=== PATIENT | female | born 1930 | race Two or more races ===

== ENCOUNTER 2017-08-02 19:33 | Inpatient (IN) | payer MEDICARE, OTHER ==
[~2017-08-02] VITALS: Ht 167.6 cm; Wt 80.0 kg
[2017-08-02] MEDS ORDERED: ACETAMINOPHEN 325 MG TAB PO ONE (19:45)
[2017-08-02] MEDS ORDERED: ACETAMINOPHEN 325 MG TAB PO PRN (19:45)
[2017-08-02] MEDS ORDERED: SODIUM CHLORIDE 0.9% 2,400 ML IV ONE (19:45)
[2017-08-02 20:45] LABS: Basophils # (auto) 0 uL; Basophils % (auto) 0.1 % (0.0-2.0); Hemoglobin 9.5 g/dL (12.2-16.2); Neutrophils # (auto) 8.9 uL
[2017-08-02 20:54] LABS: Eosinophils # (auto) 0.1 uL; Eosinophils % (auto) 0.7 % (0.0-7.0); Hematocrit 28.8 % (36.0-46.0); Lymphocytes # (auto) 0.3 uL; Lymphocytes % (auto) 2.5 % (10.0-50.0); Mean Corpuscular Hemoglobin 29.8 pg (28.0-32.0); Mean Corpuscular Hgb Conc. 33.1 g/dL (32.0-36.0); Monocytes % (auto) 10.1 % (0.0-12.0); Neutrophils % (auto) 86.6 % (37.0-80.0); Platelet Count (auto) 163 10^3/uL (140-450); White Blood Cell 10.3 10^3/uL (4.4-10.8)
[2017-08-02 21:09] LABS: INR 1.1 (0.9-1.15); Partial Thromboplastin Time 29.4 sec (22.64-33.71)
[2017-08-02 21:16] LABS: Alanine Aminotransferase 33 U/L (13-56); Albumin 2.7 g/dL (3.4-5.0); Alkaline Phosphatase 107 U/L (45-117); Anion Gap 8 (5-15); Aspartate Aminotransferase 38 U/L (15-37); BUN/Creatinine Ratio 34.1; Bilirubin, Total 0.6 mg/dL (0.2-1.0); Blood Urea Nitrogen 60 mg/dL (7-18); Calcium 9.2 mg/dL (8.5-10.1); Carbon Dioxide 23 mmol/L (21-32); Chloride 109 mmol/L (98-107); GFR African American 35 mL/min; GFR Non-African American 29 mL/min; Glucose 193 mg/dL (74-106); Potassium 4.4 mmol/L (3.5-5.1); Sodium 140 mmol/L (136-145); Total Protein 6.7 g/dL (6.4-8.2)
[2017-08-02 21:33] LABS: Urine Bacteria MANY /hpf (None Seen); Urine Blood 2+ /uL (Negative); Urine Mucus FEW (None Seen); Urine WBC 505 /hpf (0 - 5); Urine WBC Clumps PRESENT /hpf (None Seen)
[2017-08-02 21:36] LABS: CRP High Sensitivity > 19.0 mg/dL (< 0.3)
[2017-08-02] MEDS ORDERED: PIPERACILLIN-TAZO 4.5GM 100 ML IV SCH (22:00)
[2017-08-02] MEDS ORDERED: CEFTRIAXONE SODIUM 2 GM in D5W 5% 50 ML IV ONE (22:00)
[2017-08-02 22:57] LABS: Fibrinogen 722.3 mg/dL (177-375)
[2017-08-02] MEDS ORDERED: ONDANSETRON HCL 4 MG/2 ML VIAL IV PRN (23:00)
[2017-08-02] MEDS ORDERED: MORPHINE SULFATE 4 MG/ML SYR/VIAL IV PRN (23:00)
[2017-08-02] MEDS ORDERED: VANCOMYCIN PER PHARMACY 0 MG IV SCH (23:00)
[2017-08-02] MEDS ORDERED: VANCOMYCIN 1GM/250ML 250 ML IV ONE (23:15)
[2017-08-03] MEDS: PIPERACILLIN-TAZOB 2.25GM 50 ML IV SCH ×4 (02:30→18:58)
[2017-08-03] MEDS: DOPamine 1600MCG/ML D5W 250 ML IV SCH (02:47)
[2017-08-03 04:04] LABS: BUN/Creatinine Ratio 35.3; Calcium 8.6 mg/dL (8.5-10.1); Potassium 4.5 mmol/L (3.5-5.1)
[2017-08-03 04:11] LABS: Basophils # (auto) 0 uL; Basophils % (auto) 0.1 % (0.0-2.0); Eosinophils # (auto) 0 uL; Eosinophils % (auto) 0.3 % (0.0-7.0); Hematocrit 28.9 % (36.0-46.0); Hemoglobin 9.4 g/dL (12.2-16.2); Lymphocytes # (auto) 0.5 uL; Lymphocytes % (auto) 6.1 % (10.0-50.0); Mean Corpuscular Hemoglobin 29.6 pg (28.0-32.0); Mean Corpuscular Hgb Conc. 32.5 g/dL (32.0-36.0); Mean Corpuscular Volume 91.2 fL (80.0-100.0); Monocytes # (auto) 0.7 uL; Monocytes % (auto) 8.7 % (0.0-12.0); Neutrophils # (auto) 6.8 uL; Neutrophils % (auto) 84.8 % (37.0-80.0); Platelet Count (auto) 134 10^3/uL (140-450); Red Blood Cells 3.17 10^6/uL (4.0-5.20); Red Cell Distribution Width 16.3 % (11.8-14.3)
[2017-08-03 08:32] VITALS: BP 119/50
[2017-08-03] MEDS: ACETAMINOPHEN 325 MG TAB PO PRN ×2 (11:17→17:33)
[2017-08-03] MEDS: IPRATROPIUM BROM 0.5 MG/2.5ML INH SOL NEB SCH ×2 (12:19→18:07)
[2017-08-03] MEDS: ALBUTEROL SULF 2.5 MG/0.5ML(0.5%) NEB SOLN NEB SCH ×2 (12:19→18:07)
[2017-08-03] MEDS: SODIUM CHLORIDE 0.9% 1,000 ML IV SCH (15:06)
[2017-08-03] MEDS ORDERED: DEXTROSE (50%) 50ML SYRG IV PRN (15:15)
[2017-08-03 15:31] LABS: % Iron Saturation 2.3 % (15-50)
[2017-08-03] MEDS: InsuLIN REG 1unit/0.01ml Soln (100units/ml) SC SCH ×2 (17:00→21:38)
[2017-08-03] MEDS: ACCU-CHEK COMFORT CURVE STRIP VI SCH ×2 (17:10→21:33)
[2017-08-03] MEDS ORDERED: VANCOMYCIN 1GM/250ML 250 ML IV SCH (23:00)
[2017-08-04] MEDS: ALBUTEROL SULF 2.5 MG/0.5ML(0.5%) NEB SOLN NEB SCH ×4 (01:17→18:00)
[2017-08-04] MEDS: IPRATROPIUM BROM 0.5 MG/2.5ML INH SOL NEB SCH ×4 (01:17→18:00)
[2017-08-04] MEDS: DOPamine 1600MCG/ML D5W 250 ML IV SCH (05:33)
[2017-08-04] MEDS: PIPERACILLIN-TAZOB 2.25GM 50 ML IV SCH ×4 (05:33→17:51)
[2017-08-04] MEDS: SODIUM CHLORIDE 0.9% 1,000 ML IV SCH ×3 (05:34→16:53)
[2017-08-04 05:39] LABS: Basophils # (auto) 0 uL; Basophils % (auto) 0.6 % (0.0-2.0); Eosinophils # (auto) 0.2 uL; Eosinophils % (auto) 2.6 % (0.0-7.0); Hematocrit 30.5 % (36.0-46.0); Lymphocytes % (auto) 10.9 % (10.0-50.0); Mean Corpuscular Hemoglobin 30.3 pg (28.0-32.0); Mean Corpuscular Hgb Conc. 32.9 g/dL (32.0-36.0); Mean Corpuscular Volume 92.1 fL (80.0-100.0); Monocytes # (auto) 1.2 uL; Monocytes % (auto) 13.4 % (0.0-12.0); Neutrophils # (auto) 6.5 uL; Neutrophils % (auto) 72.5 % (37.0-80.0); Platelet Count (auto) 151 10^3/uL (140-450); Red Blood Cells 3.31 10^6/uL (4.0-5.20); Red Cell Distribution Width 16.5 % (11.8-14.3)
[2017-08-04 06:42] LABS: Albumin 2.3 g/dL (3.4-5.0); BUN/Creatinine Ratio 33.7; Bilirubin, Total 0.4 mg/dL (0.2-1.0); Calcium 8.7 mg/dL (8.5-10.1); Magnesium 2.6 mg/dL (1.6-2.6); Total Protein 6.7 g/dL (6.4-8.2)
[2017-08-04] MEDS: InsuLIN REG 1unit/0.01ml Soln (100units/ml) SC SCH ×4 (07:00→22:00)
[2017-08-04] MEDS: ACCU-CHEK COMFORT CURVE STRIP VI SCH ×4 (07:04→22:27)
[2017-08-04] MEDS: LEVOTHYROXINE SODIUM 50 MCG TAB PO SCH (07:04)
[2017-08-05] MEDS: IPRATROPIUM BROM 0.5 MG/2.5ML INH SOL NEB SCH ×4 (00:01→19:53)
[2017-08-05] MEDS: ALBUTEROL SULF 2.5 MG/0.5ML(0.5%) NEB SOLN NEB SCH ×4 (00:01→19:53)
[2017-08-05] MEDS: PIPERACILLIN-TAZOB 2.25GM 50 ML IV SCH ×2 (00:35→06:10)
[2017-08-05] MEDS: SODIUM CHLORIDE 0.9% 1,000 ML IV SCH ×3 (00:35→12:07)
[2017-08-05 05:57] LABS: Basophils # (auto) 0 uL; Basophils % (auto) 0.4 % (0.0-2.0); Eosinophils # (auto) 0.1 uL; Hematocrit 26.2 % (36.0-46.0); Hemoglobin 8.7 g/dL (12.2-16.2); Lymphocytes # (auto) 0.5 uL; Lymphocytes % (auto) 8.4 % (10.0-50.0); Mean Corpuscular Hemoglobin 30.1 pg (28.0-32.0); Mean Corpuscular Hgb Conc. 33.3 g/dL (32.0-36.0); Mean Corpuscular Volume 90.3 fL (80.0-100.0); Monocytes # (auto) 0.8 uL; Monocytes % (auto) 12.7 % (0.0-12.0); Neutrophils # (auto) 4.7 uL; Neutrophils % (auto) 76.5 % (37.0-80.0); Platelet Count (auto) 138 10^3/uL (140-450); Red Cell Distribution Width 16.2 % (11.8-14.3); White Blood Cell 6.1 10^3/uL (4.4-10.8)
[2017-08-05 06:13] LABS: BUN/Creatinine Ratio 22.9; Calcium 8.4 mg/dL (8.5-10.1); Potassium 4.4 mmol/L (3.5-5.1)
[2017-08-05] MEDS: InsuLIN REG 1unit/0.01ml Soln (100units/ml) SC SCH ×4 (07:00→22:00)
[2017-08-05] MEDS: LEVOTHYROXINE SODIUM 50 MCG TAB PO SCH (07:00)
[2017-08-05] MEDS: ACCU-CHEK COMFORT CURVE STRIP VI SCH ×3 (07:28→17:51)
[2017-08-05] MEDS ORDERED: cefTRIAXone 1GM/10ml IVPUSH 10 ML IV ONE (11:15)
[2017-08-05] MEDS ORDERED: MORPHINE SULFATE 4 MG/ML SYR/VIAL IV PRN (11:15)
[2017-08-05 12:20] VITALS: BP 136/46
[2017-08-05 16:17] VITALS: BP 140/57
[2017-08-05] MEDS ORDERED: MORPHINE SULFATE 8mg/ml INJ SDV IV PRN (18:00)
[2017-08-06] MEDS: IPRATROPIUM BROM 0.5 MG/2.5ML INH SOL NEB SCH ×3 (01:24→12:15)
[2017-08-06] MEDS: ALBUTEROL SULF 2.5 MG/0.5ML(0.5%) NEB SOLN NEB SCH ×3 (01:24→12:15)
[2017-08-06] MEDS: SODIUM CHLORIDE 0.9% 1,000 ML IV SCH ×2 (01:40→08:57)
[2017-08-06] MEDS: ACCU-CHEK COMFORT CURVE STRIP VI SCH ×5 (01:41→22:52)
[2017-08-06 05:06] VITALS: BP 140/59
[2017-08-06] MEDS: LEVOTHYROXINE SODIUM 50 MCG TAB PO SCH (06:54)
[2017-08-06] MEDS: InsuLIN REG 1unit/0.01ml Soln (100units/ml) SC SCH ×2 (07:00→11:28)
[2017-08-06 07:04] LABS: Hemoglobin 8.6 g/dL (12.2-16.2); Mean Corpuscular Hemoglobin 29.9 pg (28.0-32.0); Mean Corpuscular Hgb Conc. 32.9 g/dL (32.0-36.0); Mean Corpuscular Volume 90.9 fL (80.0-100.0); Platelet Count (auto) 177 10^3/uL (140-450); Red Blood Cells 2.86 10^6/uL (4.0-5.20); Red Cell Distribution Width 16.2 % (11.8-14.3)
[2017-08-06 07:08] LABS: Band Neutrophils % (manual) 0; Basophils % (manual) 0 (0.0-2.0); Blast Cells 0; Metamyelocytes % 0; Myelocytes % 0; Promyelocytes % 0; Reactive Lymphocytes 0
[2017-08-06 07:14] LABS: BUN/Creatinine Ratio 19.7; Calcium 8.2 mg/dL (8.5-10.1); Potassium 3.7 mmol/L (3.5-5.1)
[2017-08-06 08:16] VITALS: BP 140/59
[2017-08-06] MEDS: cefTRIAXone 1GM/10ml IVPUSH 10 ML IV SCH (08:57)
[2017-08-06 09:00] VITALS: BP 146/66
[2017-08-06] MEDS: ACETAMINOPHEN 325 MG TAB PO PRN (11:35)
[2017-08-06 13:00] VITALS: BP 147/60
[2017-08-06 15:29] LABS: Eosinophils % (manual) 2 (0-7); Lymphocytes % (manual) 12 (10.0-50.0); Monocytes % (manual) 12 (0-12)
[2017-08-06 16:43] VITALS: BP 144/52
[2017-08-06] MEDS ORDERED: ENOXAPARIN SOD 40 MG/0.4 ML SYRINGE SC ONE (17:15)
[2017-08-06] MEDS ORDERED: FUROSEMIDE 20 MG/2 ML VIAL IV ONE (17:15)
[2017-08-06] MEDS ORDERED: ALBUTEROL SULF 2.5 MG/0.5ML(0.5%) NEB SOLN NEB PRN (21:45)
[2017-08-06] MEDS ORDERED: IPRATROPIUM BROM 0.5 MG/2.5ML INH SOL NEB PRN (21:45)
[2017-08-06 22:00] VITALS: BP 161/79
[2017-08-07 05:00] VITALS: BP 141/64
[2017-08-07] MEDS: LEVOTHYROXINE SODIUM 50 MCG TAB PO SCH (07:19)
[2017-08-07] MEDS: ACCU-CHEK COMFORT CURVE STRIP VI SCH ×4 (07:19→21:34)
[2017-08-07 08:00] VITALS: BP 151/67
[2017-08-07 09:00] VITALS: BP 151/67
[2017-08-07] MEDS: cefTRIAXone 1GM/10ml IVPUSH 10 ML IV SCH (09:59)
[2017-08-07] MEDS: ENOXAPARIN SOD 40 MG/0.4 ML SYRINGE SC SCH (09:59)
[2017-08-07 13:00] VITALS: BP 141/62
[2017-08-07 16:50] VITALS: BP 134/68
[2017-08-07] MEDS ORDERED: IOHEXOL 350 MG/ML 100ML IJ ONE (17:49)
[2017-08-07] MEDS ORDERED: FUROSEMIDE 40 MG/4 ML VIAL IV STA (20:10)
[2017-08-07 20:14] LABS: Basophils # (auto) 0 uL; Basophils % (auto) 0.2 % (0.0-2.0); Eosinophils # (auto) 0 uL; Eosinophils % (auto) 0.3 % (0.0-7.0); Hematocrit 26.6 % (36.0-46.0); Hemoglobin 8.6 g/dL (12.2-16.2); Lymphocytes % (auto) 7.6 % (10.0-50.0); Mean Corpuscular Hemoglobin 29.1 pg (28.0-32.0); Mean Corpuscular Hgb Conc. 32.4 g/dL (32.0-36.0); Mean Corpuscular Volume 89.9 fL (80.0-100.0); Monocytes # (auto) 0.9 uL; Monocytes % (auto) 6.8 % (0.0-12.0); Neutrophils # (auto) 10.8 uL; Neutrophils % (auto) 85.1 % (37.0-80.0); Nucleated Red Blood Cells % 0.1 %; Platelet Count (auto) 210 10^3/uL (140-450); Red Blood Cells 2.96 10^6/uL (4.0-5.20); Red Cell Distribution Width 15.7 % (11.8-14.3); White Blood Cell 12.7 10^3/uL (4.4-10.8)
[2017-08-07 20:34] LABS: BUN/Creatinine Ratio 20.3; Calcium 8.3 mg/dL (8.5-10.1); Potassium 3.5 mmol/L (3.5-5.1)
[2017-08-07 20:37] LABS: Bilirubin, Total 0.5 mg/dL (0.2-1.0); Total Protein 6.1 g/dL (6.4-8.2)
[2017-08-07] MEDS ORDERED: POTASSIUM CHL 20 Meq TABLET PO ONE (22:15)
[2017-08-07] MEDS ORDERED: PANTOPRAZOLE 40 MG TAB PO ONE (22:15)
[2017-08-07 23:33] VITALS: BP 141/68
[2017-08-08 05:34] VITALS: BP 145/64
[2017-08-08 06:38] LABS: Basophils # (auto) 0 uL; Basophils % (auto) 0.3 % (0.0-2.0); Eosinophils # (auto) 0.2 uL; Hematocrit 25.3 % (36.0-46.0); Hemoglobin 8.6 g/dL (12.2-16.2); Lymphocytes # (auto) 1.1 uL; Lymphocytes % (auto) 10.8 % (10.0-50.0); Mean Corpuscular Hemoglobin 30.3 pg (28.0-32.0); Mean Corpuscular Hgb Conc. 33.9 g/dL (32.0-36.0); Mean Corpuscular Volume 89.3 fL (80.0-100.0); Monocytes # (auto) 0.9 uL; Monocytes % (auto) 8.5 % (0.0-12.0); Neutrophils # (auto) 8.3 uL; Neutrophils % (auto) 78.4 % (37.0-80.0); Platelet Count (auto) 234 10^3/uL (140-450); Red Blood Cells 2.84 10^6/uL (4.0-5.20); Red Cell Distribution Width 15.5 % (11.8-14.3); White Blood Cell 10.6 10^3/uL (4.4-10.8)
[2017-08-08] MEDS: ACCU-CHEK COMFORT CURVE STRIP VI SCH ×4 (06:38→21:39)
[2017-08-08] MEDS: LEVOTHYROXINE SODIUM 50 MCG TAB PO SCH (06:38)
[2017-08-08 06:48] LABS: Calcium 8.6 mg/dL (8.5-10.1); Potassium 3.7 mmol/L (3.5-5.1)
[2017-08-08 06:57] LABS: BUN/Creatinine Ratio 23.5
[2017-08-08 08:00] VITALS: BP 140/59
[2017-08-08] MEDS: cefTRIAXone 1GM/10ml IVPUSH 10 ML IV SCH (08:37)
[2017-08-08] MEDS: FERROUS SULFATE 325 MG TAB PO SCH ×2 (08:37→17:21)
[2017-08-08 09:00] VITALS: BP_SYST 140; BP_SYST 152; BP_DIAS 59; BP_DIAS 88
[2017-08-08] MEDS: ACETAMINOPHEN 325 MG TAB PO PRN ×2 (09:22→17:21)
[2017-08-08] MEDS: ENOXAPARIN SOD 40 MG/0.4 ML SYRINGE SC SCH (09:23)
[2017-08-08] MEDS: PANTOPRAZOLE 40 MG TAB PO SCH (09:23)
[2017-08-08 13:00] VITALS: BP 146/67
[2017-08-08 17:00] VITALS: BP 157/69
[2017-08-08 22:00] VITALS: BP 133/56
[2017-08-09 03:04] VITALS: BP 133/56
[2017-08-09 06:04] LABS: Basophils # (auto) 0 uL; Basophils % (auto) 0.3 % (0.0-2.0); Eosinophils # (auto) 0.1 uL; Eosinophils % (auto) 0.5 % (0.0-7.0); Hematocrit 28.9 % (36.0-46.0); Hemoglobin 9.2 g/dL (12.2-16.2); Lymphocytes # (auto) 0.7 uL; Lymphocytes % (auto) 5.5 % (10.0-50.0); Mean Corpuscular Hemoglobin 29.5 pg (28.0-32.0); Mean Corpuscular Hgb Conc. 31.6 g/dL (32.0-36.0); Mean Corpuscular Volume 93.2 fL (80.0-100.0); Monocytes # (auto) 0.8 uL; Neutrophils # (auto) 11.9 uL; Neutrophils % (auto) 87.7 % (37.0-80.0); Platelet Count (auto) 207 10^3/uL (140-450); Red Cell Distribution Width 16.6 % (11.8-14.3); White Blood Cell 13.6 10^3/uL (4.4-10.8)
[2017-08-09 06:09] LABS: Calcium 8.6 mg/dL (8.5-10.1); Magnesium 2.1 mg/dL (1.6-2.6)
[2017-08-09 06:12] LABS: BUN/Creatinine Ratio 26.5
[2017-08-09 06:17] VITALS: BP 152/56
[2017-08-09] MEDS: LEVOTHYROXINE SODIUM 50 MCG TAB PO SCH (06:28)
[2017-08-09] MEDS: ACCU-CHEK COMFORT CURVE STRIP VI SCH ×4 (06:31→22:00)
[2017-08-09] MEDS: FERROUS SULFATE 325 MG TAB PO SCH ×2 (07:30→17:32)
[2017-08-09 08:00] VITALS: BP 147/59
[2017-08-09] MEDS ORDERED: LISI-646 PO (08:30)
[2017-08-09] MEDS ORDERED: AMLO5TAB2 PO (08:30)
[2017-08-09] MEDS ORDERED: METO25TA5 PO (08:30)
[2017-08-09] MEDS ORDERED: LEVO50TA7 PO (08:30)
[2017-08-09] MEDS: cefTRIAXone 1GM/10ml IVPUSH 10 ML IV SCH (09:09)
[2017-08-09] MEDS: PANTOPRAZOLE 40 MG TAB PO SCH (09:10)
[2017-08-09] MEDS: ENOXAPARIN SOD 40 MG/0.4 ML SYRINGE SC SCH (09:10)
[2017-08-09] MEDS: ACETAMINOPHEN 325 MG TAB PO PRN (09:10)
[2017-08-09 11:09] LABS: Urine Amorphous Crystal FEW /hpf (None Seen); Urine Bacteria MANY /hpf (None Seen); Urine Blood 2+ /uL (Negative); Urine Mucus FEW (None Seen); Urine Specific Gravity 1.021 (1.001-1.035); Urine WBC 179 /hpf (0 - 5)
[2017-08-09 12:34] VITALS: BP 133/55
[2017-08-09 16:27] VITALS: BP 132/62
[2017-08-09 22:00] VITALS: BP 156/71
[2017-08-10 05:30] VITALS: BP 145/62
[2017-08-10] MEDS: LEVOTHYROXINE SODIUM 50 MCG TAB PO SCH (06:35)
[2017-08-10] MEDS: ACCU-CHEK COMFORT CURVE STRIP VI SCH ×4 (06:35→22:24)
[2017-08-10 06:37] LABS: Basophils # (auto) 0 uL; Hematocrit 24.9 % (36.0-46.0); Hemoglobin 8.3 g/dL (12.2-16.2); Lymphocytes # (auto) 0.8 uL; Neutrophils # (auto) 7.1 uL
[2017-08-10 06:41] LABS: Basophils % (auto) 0.3 % (0.0-2.0); Eosinophils # (auto) 0.1 uL; Eosinophils % (auto) 1.6 % (0.0-7.0); Lymphocytes % (auto) 9.2 % (10.0-50.0); Mean Corpuscular Hemoglobin 29.6 pg (28.0-32.0); Mean Corpuscular Hgb Conc. 33.2 g/dL (32.0-36.0); Mean Corpuscular Volume 89.1 fL (80.0-100.0); Monocytes # (auto) 0.8 uL; Monocytes % (auto) 9.3 % (0.0-12.0); Neutrophils % (auto) 79.6 % (37.0-80.0); Platelet Count (auto) 261 10^3/uL (140-450); Red Blood Cells 2.79 10^6/uL (4.0-5.20); Red Cell Distribution Width 15.4 % (11.8-14.3); White Blood Cell 8.9 10^3/uL (4.4-10.8)
[2017-08-10 09:00] VITALS: BP 142/59
[2017-08-10] MEDS: cefTRIAXone 1GM/10ml IVPUSH 10 ML IV SCH (09:21)
[2017-08-10] MEDS: ENOXAPARIN SOD 40 MG/0.4 ML SYRINGE SC SCH (09:22)
[2017-08-10] MEDS: ACETAMINOPHEN 325 MG TAB PO PRN (09:22)
[2017-08-10] MEDS: FERROUS SULFATE 325 MG TAB PO SCH ×2 (09:22→18:02)
[2017-08-10] MEDS: PANTOPRAZOLE 40 MG TAB PO SCH (09:22)
[2017-08-10] MEDS ORDERED: FUROSEMIDE 20 MG/2 ML VIAL IV ONE (11:30)
[2017-08-10 13:00] VITALS: BP 142/79
[2017-08-10 16:45] VITALS: BP 145/69
[2017-08-10 20:00] VITALS: BP 142/64
[2017-08-11] MEDS: ACETAMINOPHEN 325 MG TAB PO PRN (03:31)
[2017-08-11 04:55] VITALS: BP 145/58
[2017-08-11 05:48] LABS: Basophils # (auto) 0 uL; Eosinophils # (auto) 0.1 uL; Eosinophils % (auto) 1.6 % (0.0-7.0); Hemoglobin 8.2 g/dL (12.2-16.2); Lymphocytes # (auto) 0.8 uL; Monocytes # (auto) 0.8 uL; Red Cell Distribution Width 15.2 % (11.8-14.3)
[2017-08-11 05:52] LABS: Basophils % (auto) 0.4 % (0.0-2.0); Hematocrit 24.1 % (36.0-46.0); Lymphocytes % (auto) 9.2 % (10.0-50.0); Mean Corpuscular Hgb Conc. 33.9 g/dL (32.0-36.0); Mean Corpuscular Volume 88.4 fL (80.0-100.0); Monocytes % (auto) 9.9 % (0.0-12.0); Neutrophils # (auto) 6.5 uL; Neutrophils % (auto) 78.9 % (37.0-80.0); Nucleated Red Blood Cells % 0.1 %; Platelet Count (auto) 295 10^3/uL (140-450); Red Blood Cells 2.73 10^6/uL (4.0-5.20); White Blood Cell 8.2 10^3/uL (4.4-10.8)
[2017-08-11 06:01] LABS: BUN/Creatinine Ratio 20.9; Calcium 8.6 mg/dL (8.5-10.1); Potassium 3.5 mmol/L (3.5-5.1)
[2017-08-11] MEDS: LEVOTHYROXINE SODIUM 50 MCG TAB PO SCH (06:25)
[2017-08-11] MEDS: ACCU-CHEK COMFORT CURVE STRIP VI SCH ×3 (07:00→18:04)
[2017-08-11] MEDS: FERROUS SULFATE 325 MG TAB PO SCH ×2 (08:48→18:03)
[2017-08-11] MEDS: cefTRIAXone 1GM/10ml IVPUSH 10 ML IV SCH (08:48)
[2017-08-11 09:00] VITALS: BP 137/54
[2017-08-11] MEDS: PANTOPRAZOLE 40 MG TAB PO SCH (09:36)
[2017-08-11] MEDS: ENOXAPARIN SOD 40 MG/0.4 ML SYRINGE SC SCH (09:37)
[2017-08-11] MEDS ORDERED: FUROSEMIDE 20 MG/2 ML VIAL IV ONE (11:15)
[2017-08-11] MEDS ORDERED: POTA10TA34 PO (11:15)
[2017-08-11] MEDS ORDERED: LEVO750T2 PO (11:15)
[2017-08-11] MEDS ORDERED: POTASSIUM CHL 10 Meq TABLET PO ONE (11:15)
[2017-08-11] MEDS ORDERED: SACC250C PO (11:15)
[2017-08-11] MEDS ORDERED: FURO20TA PO (11:15)
[2017-08-11] MEDS ORDERED: FER325T PO (11:15)
[2017-08-11] MEDS ORDERED: PANT40T PO (11:15)
[2017-08-11] MEDS ORDERED: LISI-646 PO (11:17)
[2017-08-11 13:00] VITALS: BP 138/58
[2017-08-11 17:10] VITALS: BP 142/54
== END 2017-08-11 18:50 | disposition home health service (06) | DRG 871 ==
LOC: EDBD 19:33 → ER 19:36 → OVERFLOW 19:37 → TELE-WESTW 08-05 11:37 → WEST WING 08-09 11:15 → TELE-WESTW 08-10 20:09
PROVIDERS: ADMIT Nurse Practitioner Family; ATTEND Internal Medicine
DX: A41.9 Sepsis, unspecified organism (principal); N17.0 Acute kidney failure with tubular necrosis; J96.01 Acute respiratory failure with hypoxia; I21.4 Non-ST elevation (NSTEMI) myocardial infarction; G93.41 Metabolic encephalopathy; J18.9 Pneumonia, unspecified organism; I50.33 Acute on chronic diastolic (congestive) heart failure; D61.818 Other pancytopenia; N12 Tubulo-interstitial nephritis, not specified as acute or chronic; N39.0 Urinary tract infection, site not specified; E11.21 Type 2 diabetes mellitus with diabetic nephropathy; E03.9 Hypothyroidism, unspecified; D63.8 Anemia in other chronic diseases classified elsewhere; B96.20 Unspecified Escherichia coli [E. coli] as the cause of diseases classified elsewhere; E11.22 Type 2 diabetes mellitus with diabetic chronic kidney disease; N18.9 Chronic kidney disease, unspecified; F03.90 Unspecified dementia, unspecified severity, without behavioral disturbance, psychotic disturbance, mood disturbance, and anxiety
CPT/HCPCS: 36415; 36600; 51702; 71045; 71046; 71275; 80048; 80053; 80061; 80202; 81001; 82270; 82553; 82805; 82962; 83036; 83540; 83550; 83605; 83735; 83880; 84443; 84484; 85007; 85025; 85027; 85379; 85384; 85610; 85730; 86141; 87040; 87077; 87086; 87088; 87186; 93005; 93306; 94640; 96361; 96365; 96366; 96375; 97116; 97163; 97530; 99291; G0378; J0696; J1815; J2543; J7060

== ENCOUNTER 2018-08-30 10:00 | Emergency (ER) | payer MEDICARE ==
[~2018-08-30] VITALS: Ht 167.6 cm; Wt 72.6 kg
[~2018-08-30 10:00] MED LIST: FER325T PO; FURO20TA PO; LEVO50TA7 PO; LEVO750T2 PO; LISI-646 PO; METO25TA5 PO; PANT40T PO; POTA1TAB61 PO; SACC250C PO
[2018-08-30] MEDS ORDERED: SODIUM CHLORIDE 0.9% 1,000 ML IV ONE (10:48)
[2018-08-30 11:38] LABS: Basophils # (auto) 0.1 uL; Basophils % (auto) 1.2 % (0.0-2.0); Chloride 104 mmol/L (98-107); Eosinophils # (auto) 0.1 uL; Eosinophils % (auto) 1.6 % (0.0-7.0); Hematocrit 37.7 % (36.0-46.0); Hemoglobin 12.9 g/dL (12.2-16.2); Lymphocytes # (auto) 1.6 uL; Lymphocytes % (auto) 25.4 % (10.0-50.0); Mean Corpuscular Hemoglobin 31.3 pg (28.0-32.0); Mean Corpuscular Hgb Conc. 34.1 g/dL (32.0-36.0); Mean Corpuscular Volume 91.8 fL (80.0-100.0); Monocytes # (auto) 0.7 uL; Monocytes % (auto) 11.5 % (0.0-12.0); Neutrophils # (auto) 3.8 uL; Neutrophils % (auto) 60.3 % (37.0-80.0); Nucleated Red Blood Cells % 0.2 %; Red Blood Cells 4.11 10^6/uL (4.0-5.20); Red Cell Distribution Width 14.1 % (11.8-14.3); Sodium 138 mmol/L (136-145); White Blood Cell 6.4 10^3/uL (4.4-10.8)
[2018-08-30 11:47] LABS: Alanine Aminotransferase 17 U/L (13-56); Albumin 3.7 g/dL (3.4-5.0); Alkaline Phosphatase 64 U/L (45-117); Anion Gap 7 (5-15); Aspartate Aminotransferase 20 U/L (15-37); BUN/Creatinine Ratio 16.1; Bilirubin, Total 0.7 mg/dL (0.2-1.0); Blood Urea Nitrogen 19 mg/dL (7-18); Calcium 9.4 mg/dL (8.5-10.1); Carbon Dioxide 27 mmol/L (21-32); GFR African American 56 mL/min; GFR Non-African American 46 mL/min; Glucose 107 mg/dL (74-106); Magnesium 2.7 mg/dL (1.6-2.6)
[2018-08-30 12:35] LABS: Platelet Count (auto) 250 10^3/uL (140-450)
[2018-08-30] MEDS ORDERED: ACETAMINOPHEN 500 MG TAB PO ONE (13:00)
[2018-08-30 14:23] VITALS: BP 133/76
[2018-08-30 14:31] LABS: INR 0.98 (0.9-1.15); Partial Thromboplastin Time 24.8 sec (23.64-32.05)
== END 2018-08-30 14:41 | disposition home or self-care (01) ==
LOC: ER 10:04
DX: I63.9 Cerebral infarction, unspecified (principal); G81.94 Hemiplegia, unspecified affecting left nondominant side; N39.0 Urinary tract infection, site not specified; N18.3 Chronic kidney disease, stage 3 (moderate)
CPT/HCPCS: 36415; 70450; 71045; 80053; 83735; 84484; 85025; 85610; 85730; 93005; 94761; 99284; J7030